=== PATIENT | male | born 1960 | race Caucasian/White ===

== ENCOUNTER 2021-11-03 02:07 | Day surgery (SDC) | payer OTHER, SELFPAY ==
[2021-10-21 10:17] VITALS: BMI 29.0
[2021-11-03 09:36] LABS: Glucose Point of Care 203 mg/dl (65-105)
[2021-11-03 09:38] VITALS: BP 125/75; PULSE 68; RESP 18; TEMP 36.2; O2SAT 99
--- NOTE | 2021-11-03 09:53 | PM.HPGS ---
History of Present Illness History of Present Illness Consent: Risks, benefits, and alternatives have been discussed and questions answered. Patient agrees to proceed with procedure. Chief complaint: neoplasm screening Narrative: Prakash Mohamud is a 61 year old male Presents for screening colonoscopy. Patient's current weight appetite and bowel movements are normal. Patient denies abdominal pain. He has had no bleeding. His bowel habits are normal. He has no weight loss. Family history is significant that his father had colon polyps. Patient states previous colonoscopy 6 years ago was unremarkable. Review of Systems Review of Systems: Review of systems noncontributory. [facility] Social History Social History Smoking status: Former smoker Tobacco type: pipe Living arrangements: with family Meds Home Medications and Allergies Home Medications Medication Instructions Recorded Confirmed Type glipizide 5 mg tablet, extended 5 mg PO DAILY 10/21/21 11/03/21 History release 24 hr lisinopril 5 mg tablet 5 mg PO DAILY 10/21/21 11/03/21 History metformin 1,000 mg tablet 1,000 mg PO DAILY 10/21/21 11/03/21 History rosuvastatin 10 mg tablet 10 mg PO DAILY 10/21/21 11/03/21 History Allergies Allergy/AdvReac Type Severity Reaction Status Date / Time latex Allergy Rash Verified 11/03/21 09:36 Vital Signs Vital Signs - 24 hr 11/03/21 09:38 Temperature 97.1 F L Pulse Rate 68 Respiratory Rate 18 Blood Pressure 125/75 Pulse Oximetry 99 Oxygen Delivery Room Air Exam Narrative: Physical exam reveals patient to be alert. Vital signs stable. HEENT exam is unremarkable. Patient is anicteric. Lungs are clear to auscultation and percussion. Heart is without murmur or extra sounds. Abdominal exam bowel sounds present soft nontender with no organomegaly. Digital external rectal exam is normal. Assessment and Plan Assessment and plan (1) Encounter for screening colonoscopy: Code(s): Z12.11 - Encounter for screening for malignant neoplasm of colon Status: Acute Assessment and Plan: Patient presents for screening colonoscopy. . His father does have a history of colon polyp suggesting may have a little bit higher risk of polyps. (2) Family history of colonic polyps: Code(s): Z83.71 - Family history of colonic polyps Status: Acute Assessment and Plan: Patient has a family history of colon polyps in his father. Plan for surveillance colonoscopy in the future.
[2021-11-03] MEDS: LACTATED RINGERS 1,000 ML 150 ML IV CONT (09:58)
--- NOTE | 2021-11-03 10:36 | P.PNAN_ITS ---
Anes - Initial Pre Proc Eval Procedure: Operation Date: 11/03/21 10:30 Proposed Procedures p Screening Colonoscopy - Cassius Wood MD Date/Time: 11/03/21 10:36 Surgeon: Cassius Wood MD Pre Op Diagnosis: neoplasm screening Patient Data Age: 61 Gender: M Height: 1.7 m Weight: 84.09 kg Last Vital Signs Temp 97.1 F L 11/03/21 09:38 Pulse 68 11/03/21 09:38 Resp 18 11/03/21 09:38 BP 125/75 11/03/21 09:38 Pulse Ox 99 11/03/21 09:38 O2 Del Method Room Air 11/03/21 09:38 Allergies Allergy/AdvReac Type Severity Reaction Status Date / Time latex Allergy Rash Verified 11/03/21 09:36 Home Medications Medication Instructions Recorded Confirmed Type glipizide 5 mg tablet, extended 5 mg PO DAILY 10/21/21 11/03/21 History release 24 hr lisinopril 5 mg tablet 5 mg PO DAILY 10/21/21 11/03/21 History metformin 1,000 mg tablet 1,000 mg PO DAILY 10/21/21 11/03/21 History rosuvastatin 10 mg tablet 10 mg PO DAILY 10/21/21 11/03/21 History Laboratory Tests 11/03/21 09:33 POC Capillary Glucose 203 mg/dl H mg/dl (65-105) Patient hx anesthesia problems: none Family hx anesthesia problems: none Results Review: All pre-operative results and documents have been reviewed as part of the pre- operative evaluation. PMF[facility] Social History Social History Smoking status: Former smoker Tobacco type: pipe Living arrangements: with family Anes - Eval Final PreProcedure Day of Procedure 11/03/21 10:36 Patient weight: normal Heart: regular rate and rhythm Lungs: clear to auscultation Airway: Mallampati scale class II Neurological: alert and oriented Last oral intake: >/= 8 hours ASA classification: III Emergent: no Anesthetic plan: proceed Anesthesia type and monitoring: general GIVS and standard monitoring Results Review: All pre-operative results and documents have been reviewed as part of the pre- operative evaluation. Informed Consent: The patient's anesthetic plan and its attendant risks and benefits were discussed with the patient/family/POA. Questions were solicited and answers provided to the satisfaction of the patient/family/POA.
--- NOTE | 2021-11-03 10:42 | P.PNAN_ITS ---
Anes - Initial Pre Proc Eval Procedure: Operation Date: 11/03/21 10:30 Proposed Procedures p Screening Colonoscopy - Cassius Wood MD Date/Time: 11/03/21 10:42 Surgeon: Cassius Wodo MD Pre Op Diagnosis: neoplasm screening Patient Data Age: 61 Gender: M Height: 1.7 m Weight: 84.09 kg Last Vital Signs Temp 97.1 F L 11/03/21 09:38 Pulse 68 11/03/21 09:38 Resp 18 11/03/21 09:38 BP 125/75 11/03/21 09:38 Pulse Ox 99 11/03/21 09:38 O2 Del Method Room Air 11/03/21 09:38 Allergies Allergy/AdvReac Type Severity Reaction Status Date / Time latex Allergy Rash Verified 11/03/21 09:36 Home Medications Medication Instructions Recorded Confirmed Type glipizide 5 mg tablet, extended 5 mg PO DAILY 10/21/21 11/03/21 History release 24 hr lisinopril 5 mg tablet 5 mg PO DAILY 10/21/21 11/03/21 History metformin 1,000 mg tablet 1,000 mg PO DAILY 10/21/21 11/03/21 History rosuvastatin 10 mg tablet 10 mg PO DAILY 10/21/21 11/03/21 History Laboratory Tests 11/03/21 09:33 POC Capillary Glucose 203 mg/dl H mg/dl (65-105) Patient hx anesthesia problems: none Family hx anesthesia problems: none Results Review: All pre-operative results and documents have been reviewed as part of the pre- operative evaluation. PMFSH Social History Social History Smoking status: Former smoker Tobacco type: pipe Living arrangements: with family Anes - Eval Final PreProcedure Day of Procedure 11/03/21 10:42 Patient weight: overweight Heart: regular rate and rhythm Lungs: clear to auscultation Neurological: alert and oriented Last oral intake: >/= 8 hours Emergent: no Anesthetic plan: proceed Anesthesia type and monitoring: general GIVS and standard monitoring Results Review: All pre-operative results and documents have been reviewed as part of the pre- operative evaluation. Informed Consent: The patient's anesthetic plan and its attendant risks and benefits were discussed with the patient/family/POA. Questions were solicited and answers provided to the satisfaction of the patient/family/POA.
[2021-11-03 10:58] VITALS: BP 93/60; PULSE 68; RESP 21; O2SAT 97
[2021-11-03 11:08] VITALS: BP 106/74; PULSE 68; RESP 21; O2SAT 99
[2021-11-03 11:18] VITALS: BP 116/78; PULSE 68; RESP 21; O2SAT 99
== END 2021-11-03 11:27 | disposition home or self-care (01) ==
PROVIDERS: PCP Family Medicine; Visit Provider Internal Medicine Gastroenterology
PROC: 0DJD8ZZ Inspection of Lower Intestinal Tract, Via Natural or Artificial Opening Endoscopic (ICD-10-PCS; CPT 45378; principal; 2021-11-03 10:30)
DX: Z12.11 Encounter for screening for malignant neoplasm of colon (principal); Z83.71 Family history of colonic polyps; K64.8 Other hemorrhoids; Z79.84 Long term (current) use of oral hypoglycemic drugs; Z87.891 Personal history of nicotine dependence
CPT/HCPCS: 45378; 82948; J2704; J7120